=== PATIENT | male | born 1980 | race Caucasian/White ===

== ENCOUNTER 2016-11-09 13:21 | Emergency (ER) | payer OTHER ==
[2016-11-09] MEDS ORDERED: ASPIRIN 81 MG TABLET, CHEWABLE PO ONE (14:53)
--- NOTE | 2016-11-09 15:00 | ER Document Report ---
ED Medical Screen (RME) - General TRAVEL OUTSIDE OF THE [place] IN LAST 30 DAYS: No <SONIDO CARDONA - Last Filed: 11/09/16 14:52> <SHAHIDA HUMPHREY - Last Filed: 11/09/16 21:19> - General Chief Complaint: Arm Pain Stated Complaint: BACK PAIN Notes: Patient is a 36 year old male presenting to the emergency department for left sided chest and back pain since last night. Patient arrived via EMS and states the pain is traveling under his left arm. Patient also has a fever (102.9 F), chills (last night), vomiting, and diarrhea. Patient has a history of TBI and PTSD. Patient has no history of [place], stroke or problems with his gallbladder. (SONIDO CARDONA) - Related Data Allergies/Adverse Reactions: azithromycin [From Zithromax Z-Star] Adverse Reaction (Verified 11/09/16 13:34) Past Medical History - Past Medical History Cardiac Medical History: Reports: Hx Hypertension Pulmonary Medical History: Denies: Hx Tuberculosis Neurological Medical History: Reports: Hx Seizures Renal/ Medical History: Denies: Hx Peritoneal Dialysis Psychiatric Medical History: Reports: Hx Post Traumatic Stress Disorder Traumatic Medical History: Reports: Hx Traumatic Brain Injury - Immunizations Hx Diphtheria, Pertussis, Tetanus Vaccination: - 2007 <SONIDO CARDONA - Last Filed: 11/09/16 14:52> Physical Exam <SONIDO CARDONA - Last Filed: 11/09/16 14:52> <SHAHIDA HUMPHREY - Last Filed: 11/09/16 21:19> - Vital signs Vitals: Temp Pulse Resp BP Pulse Ox 99.4 F 125 H 18 142/83 H 95 11/09/16 13:34 11/09/16 13:34 11/09/16 13:34 11/09/16 13:34 11/09/16 13:34 - Notes Notes: GENERAL: Alert, interacts well. Mild distress. LUNGS: Clear to auscultation bilaterally, no wheezes, rales, or rhonchi. No respiratory distress. HEART: Regular rate and rhythm. No murmurs, gallops, or rubs. ABDOMEN: Epigastric tenderness with palpation. Mild tenderness to the entire abdomen but more tender in the RUQ. Non-distended. Bowel sounds present in all 4 quadrants. (SONIDO CARDONA) Course - Laboratory Result Diagrams: 11/09/16 15:30 11/09/16 15:30 <SHAHIDA HUMPHREY - Last Filed: 11/09/16 21:19> - Vital Signs Vital signs: Temp Pulse Resp BP Pulse Ox 99.0 F 93 18 125/86 H 95 11/09/16 19:31 11/09/16 19:31 11/09/16 19:31 11/09/16 19:31 11/09/16 19:31 - Laboratory Laboratory results interpreted by me: 11/09/16 11/09/16 15:30 15:30 WBC 11.0 H Seg Neuts % (Manual) 87 H Band Neutrophils % 2 L Lymphocytes % (Manual) 6 L Abs Neuts (Manual) 9.8 H Carbon Dioxide 21 L Glucose 160 H ALT 73 H Creatine Kinase 51 L Doctor's Discharge <SONIDO CARDONA - Last Filed: 11/09/16 14:52> <SHAHIDA HUMPHREY - Last Filed: 11/09/16 21:19> - Discharge Clinical Impression: Vomiting and diarrhea, Acute left-sided thoracic back pain, Muscle spasm Condition: Stable Disposition: HOME, SELF-CARE Additional Instructions: VOMITING: Vomiting (or nausea without vomiting) can be caused by many other different problems. It can mean that something's wrong with the stomach, such as ulcers or inflammation or the intestinal tract, such as appendicitis. But it can also be a symptom of a problem that has nothing to do with the stomach or intestines. Vomiting is common with severe headaches, earaches, tonsillitis, and kidney infections, etc. We see it with pneumonia or heart attacks. Drugs can cause nausea and vomiting. Many abdominal problems cause vomiting; for example, gallstones, kidney stones, pancreatitis, and intestinal obstruction ( blocked bowels). In most cases, curing the vomiting depends on fixing the problem that caused it. For temporary relief, we may use an anti-nausea medicine. For home use, we can prescribe suppositories, chewable pills, pills that dissolve in the mouth, or liquid anti-nausea drugs. If the vomiting seems to be caused by a problem in the stomach, acid-suppressing drugs may be prescribed as well. It's important to avoid dehydration. Sip small amounts of clear liquids ( soft drinks, tea, broth, etc) . Try to take fluids frequently even if you are vomiting to prevent dehydration. Take increasing amounts of fluid and when liquids are being consumed successfully, advance to small amounts of bland food (toast, soups, mashed potatoes, etc.) until you are able to resume a regular diet. Avoid aspirin, tobacco, and alcohol. If the vomiting worsens, if the problem that's making you vomit worsens, or if there's evidence of bleeding in the stomach (such as black, tarry stool, or bloody or black vomit), you should return immediately. Also, return if abdominal pain worsens or becomes localized to one area or you develop high fever. Call your doctor if you aren't improved in 24 hours. DIARRHEA, NON-SPECIFIC: Diarrhea means frequent, watery stools. There are many causes. Any problem that keeps the intestinal tract from absorbing water from the stool can lead to diarrhea. A sudden new diarrhea problem is usually caused by a virus, food sensitivity, toxic bacteria, or drugs. In this case, we expect the problem to go away soon. Testing is done only if you seem seriously ill from the diarrhea. If you have chronic diarrhea, or diarrhea that keeps coming back, we need to find out why. Chronic diarrhea can be due to inflammation of the bowels such as Crohn's disease or ulcerative colitis, food sensitivity such as intolerance to lactose or wheat protein, irritable bowel syndrome, and other problems. If your diarrhea is a significant problem but it's not clear why you have it, we' ll refer you to a specialist for further testing. During an episode of diarrhea, drink small amounts (two to six ounces) of clear liquids (soft drinks, sport drinks, herb teas, broth, etc). Take fluids frequently to prevent dehydration. It's usually not a problem to take mild anti- diarrhea medication such as Kaopectate or Pepto-Bismol. As the diarrhea eases, advance to small amounts of bland food (mashed potato, toast) for 24 hours. Call the physician if blood appears in your vomit or stool, if vomiting lasts longer than 24 hours, if the abdominal pain worsens or becomes localized to one area, if you develop high fever, or if you become lightheaded and weak. VIRAL SYNDROME: The physician has diagnosed a likely viral infection. Viruses not only cause "colds," but can cause many different symptoms including generalized aching, fever, headache, cough, diarrhea, nausea, vomiting, and fatigue. The treatment, for the most part, is simply relief of symptoms. This means that antibiotics are usually not given. Rest, fluids, pain medications and, occasionally, medication for the specific symptoms that are most bothersome will be prescribed. Use good handwashing to avoid passing the virus to others. Shared toys should be cleaned with disinfectant. Clean the toilets, sinks, and counter surfaces in bathrooms. Launder clothing in hot water. Contact the physician if you develop any new or unusual symptoms such as severe headache, stiff neck, high fever, chest pain, productive cough, or shortness of breath. You should be rechecked if you don't see marked improvement within seven to 10 days. ANTINAUSEA MEDICATION: You have been given a medication to suppress nausea and vomiting. This type of medication can be given as a shot, pill, or suppository. It will usually last for many hours. Pills and shots usually last six to eight hours. For the typical illness, only one or two doses of the medication may be necessary. Mild lightheadedness may occur. This type of medicine can cause drowsiness. Do not drive or operate dangerous machinery while under its influence. Do not mix with alcohol. See your doctor at once if you have muscle spasms or tightness, or uncontrollable motions (particularly of the neck, mouth, or jaw). Persistent vomiting or severe lightheadedness should also be evaluated by the physician. Ultram Ultram is an excellent drug for pain relief. It is not a narcotic, but it works in a similar way. Ultram can take up to two hours for full effect. Although not addicting, Ultram is best avoided in patients with a history of drug abuse. Ultram should not be used with alcohol, sleeping pills, or narcotics. If you're prone to seizures, Ultram can make you more likely to have a seizure. Ultram can be hazardous when combined with MAO-inhibitor antidepressants (such as Nardil or Parnate). Be sure your doctor is aware of all medicines you are taking. Persons with severe liver or kidney disease should increase the time between doses of Ultram. Discuss this with your doctor if you're uncertain. Side effects of Ultram can include dizziness, nausea, constipation, sleepiness, and itching. (These side effects are also seen with narcotic pain medicines.) Please call your doctor if you have other disturbing effects. FOLLOW-UP CARE: If you have been referred to a physician for follow-up care, call the physician s office for an appointment as you were instructed or within the next two days. If you experience worsening or a significant change in your symptoms, notify the physician immediately or return to the Emergency Department at any time for re-evaluation. Prescriptions: Tramadol HCl [Ultram 50 mg Tablet] 50 mg PO Q4HP PRN #12 tab PRN Reason: Ondansetron [Zofran Odt 4 mg Tablet] 1 - 2 tab PO Q4H PRN #10 tab.rapdis PRN Reason: For Nausea/Vomiting Scribe Documentation - Scribe Written by [employer]:: rDe Brandon 11/09/16 15:05 acting as scribe for :: Peter <SONIDO CARDONA - Last Filed: 11/09/16 14:52>
[2016-11-09] MEDS ORDERED: ONDANSETRON HCL INJ/PF 4 MG/2 ML SDV IV ONE ×2 (15:02→19:31)
[2016-11-09] MEDS ORDERED: HYDROMORPHONE HCL INJ/PF 2 MG/ML AMPULE IV ONE (15:03)
[2016-11-09] MEDS ORDERED: NORMAL SALINE 1000 ML 1,000 ML IV ONE (15:03)
[2016-11-09 15:46] LABS: HEMATOCRIT 46.5 % (37.9-51.0); HEMOGLOBIN 16.1 g/dL (13.5-17.0); HGB HCT DIFFERENCE 1.8; MEAN CORPUSCULAR HEMOGLOBIN 31.7 pg (27.0-33.4); MEAN CORPUSCULAR HGB CONC 34.7 g/dL (32.0-36.0); MEAN CORPUSCULAR VOLUME 92 fl (80-97); RED BLOOD COUNT 5.08 10^6/uL (4.35-5.55); RED CELL DISTRIBUTION WIDTH 13.4 % (11.5-14.0)
[2016-11-09 15:58] LABS: ALANINE AMINOTRANSFERASE 73 U/L (21-72); ALBUMIN 4.7 g/dL (3.5-5.0); ALKALINE PHOSPHATASE 80 U/L (38-126); ANION GAP 16 (5-19); ASPARTATE AMINO TRANSFERASE 29 U/L (17-59); BILIRUBIN,DIRECT 0.3 mg/dL (0.0-0.4); BILIRUBIN,TOTAL 0.9 mg/dL (0.2-1.3); BLOOD UREA NITROGEN 15 mg/dL (7-20); CALCIUM 9.2 mg/dL (8.4-10.2); CARBON DIOXIDE 21 mmol/L (22-30); CHLORIDE 101 mmol/L (98-107); CREATINE KINASE 51 U/L (55-170); CREATININE RESULT 1.17 mg/dL (0.52-1.25); GLUCOSE 160 mg/dL (75-110); POTASSIUM 4.3 mmol/L (3.6-5.0); SODIUM 137.9 mmol/L (137-145); TOTAL PROTEIN 8.2 g/dL (6.3-8.2)
[2016-11-09 16:09] LABS: BAND NEUTROPHILS % (MANUAL) 2 % (3-5); BASOPHILS % (MANUAL) 0 % (0-2); EOSINOPHILS % (MANUAL) 0 % (0-6); LYMPHOCYTES % (MANUAL) 6 % (13-45); TOTAL CELLS COUNTED 100
[2016-11-09 16:10] LABS: RBC MORPHOLOGY COMMENT NORMO-CYTIC/CHROMIC
--- NOTE | 2016-11-09 16:14 | ER Document Report ---
ED General - General Chief Complaint: Arm Pain Stated Complaint: BACK PAIN Time Seen by Provider: 11/09/16 14:52 Notes: Patient says he began feeling ill yesterday with nausea and diarrhea. Patient awakened this morning and between 7 and 8:00 he began having dry heaves. About noon, he actually vomited. At about 10 AM, he was able to eat a piece of toast and keep it down for a couple of hours. He continues to be nauseated and the diarrhea has also continued. Patient started having pain in the left infrascapular region about 9 AM that continued until he arrived here and got some pain medications. He says this pain in the left upper back began while he was laying on the couch watching TV. He is almost pain-free at this time and his nausea is improving. Denies any anterior chest pain. Denies any abdominal pain, but says it hurt when he was examined here in triage when he was poked in the right upper quadrant. TRAVEL OUTSIDE OF THE [place] IN LAST 30 DAYS: No - Related Data Allergies/Adverse Reactions: azithromycin [From Zithromax Z-Star] Adverse Reaction (Verified 11/09/16 13:34) Past Medical History - Social History Smoking Status: Never Smoker Cigarette use (# per day): No - Stopped 1 month ago. Chew tobacco use (# tins/day): No Frequency of alcohol use: None Drug Abuse: None Family History: Reviewed & Not Pertinent - Past Medical History Cardiac Medical History: Reports: Hx Hypertension Neurological Medical History: Reports: Hx Seizures, Other - TBI in the . GI Medical History: Reports: Hx Gastroesophageal Reflux Disease, Other - Colonoscopy 2, polyps found both times Psychiatric Medical History: Reports: Hx Post Traumatic Stress Disorder Traumatic Medical History: Reports: Hx Traumatic Brain Injury Past Surgical History: Reports: None - Immunizations Hx Diphtheria, Pertussis, Tetanus Vaccination: - 2007 Hx Pneumococcal Vaccination: 04/22/01 Review of Systems - Review of Systems Notes: REVIEW OF SYSTEMS: CONSTITUTIONAL : Denies fever. EENT: Denies eye, ear, nose or mouth or throat pain or other symptoms. CARDIOVASCULAR: Denies chest pain. No anterior chest pain at any time. RESPIRATORY: Denies cough, chest congestion, or shortness of breath. GASTROINTESTINAL: Denies abdominal pain but tender in the right upper quadrant when evaluated in triage. See HPI. GENITOURINARY: Denies difficulty or painful urinating, urinary frequency, blood in urine. MUSCULOSKELETAL: Denies back or neck pain. Denies joint pain or swelling. SKIN: Denies rash or skin lesions. NEUROLOGICAL: Denies LOC or altered mental status. Denies headache. Denies sensory loss or motor deficits. ALL OTHER SYSTEMS REVIEWED AND NEGATIVE. Physical Exam - Vital signs Vitals: Temp Pulse Resp BP Pulse Ox 99.4 F 125 H 18 142/83 H 95 11/09/16 13:34 11/09/16 13:34 11/09/16 13:34 11/09/16 13:34 11/09/16 13:34 Interpretation: Normal, Tachycardic - Slightly - Notes Notes: PHYSICAL EXAMINATION: GENERAL: Well-appearing, in no acute distress. Anxious. Has already received a half a milligram of hydromorphone. HEAD: Atraumatic, normocephalic. EYES: Pupils equal round and reactive to light, extraocular movements intact. ENT: oropharynx clear without exudates. Moist mucous membranes. NECK: Normal range of motion, supple. LUNGS: Breath sounds clear and equal bilaterally. HEART: Regular rate and rhythm without murmurs. ABDOMEN: Soft, nontender. No guarding or rebound. BACK: No tenderness throughout entire back except for tender musculature in the left infra scapular region. EXTREMITIES: Normal range of motion without pain. NEUROLOGICAL: Normal speech, normal gait. Normal sensory, motor, and reflex exams. Awake, alert, and oriented x3. Cranial nerves normal. SKIN: Warm, dry, no rashes. Course - Vital Signs Vital signs: Temp Pulse Resp BP Pulse Ox 99.0 F 93 18 125/86 H 95 11/09/16 19:31 11/09/16 19:31 11/09/16 19:31 11/09/16 19:31 11/09/16 19:31 - Laboratory Result Diagrams: 11/09/16 15:30 11/09/16 15:30 Laboratory results interpreted by me: 11/09/16 11/09/16 15:30 15:30 WBC 11.0 H Seg Neuts % (Manual) 87 H Band Neutrophils % 2 L Lymphocytes % (Manual) 6 L Abs Neuts (Manual) 9.8 H Carbon Dioxide 21 L Glucose 160 H ALT 73 H Creatine Kinase 51 L - Diagnostic Test Radiology reviewed: Image reviewed, Reports reviewed Radiology results interpreted by me: 11/09/16 20:52 Ultrasound of the right upper quadrant of the abdomen was normal. 11/09/16 20:52 Chest x-ray was normal. - EKG Interpretation by Me EKG shows normal: Sinus rhythm Rate: Normal Rhythm: NSR Additional EKG results interpreted by me: 11/09/16 20:52 EKG was normal. Discharge - Discharge Clinical Impression: Vomiting and diarrhea, Acute left-sided thoracic back pain, Muscle spasm Condition: Stable Disposition: HOME, SELF-CARE Additional Instructions: VOMITING: Vomiting (or nausea without vomiting) can be caused by many other different problems. It can mean that something's wrong with the stomach, such as ulcers or inflammation or the intestinal tract, such as appendicitis. But it can also be a symptom of a problem that has nothing to do with the stomach or intestines. Vomiting is common with severe headaches, earaches, tonsillitis, and kidney infections, etc. We see it with pneumonia or heart attacks. Drugs can cause nausea and vomiting. Many abdominal problems cause vomiting; for example, gallstones, kidney stones, pancreatitis, and intestinal obstruction ( blocked bowels). In most cases, curing the vomiting depends on fixing the problem that caused it. For temporary relief, we may use an anti-nausea medicine. For home use, we can prescribe suppositories, chewable pills, pills that dissolve in the mouth, or liquid anti-nausea drugs. If the vomiting seems to be caused by a problem in the stomach, acid-suppressing drugs may be prescribed as well. It's important to avoid dehydration. Sip small amounts of clear liquids ( soft drinks, tea, broth, etc) . Try to take fluids frequently even if you are vomiting to prevent dehydration. Take increasing amounts of fluid and when liquids are being consumed successfully, advance to small amounts of bland food (toast, soups, mashed potatoes, etc.) until you are able to resume a regular diet. Avoid aspirin, tobacco, and alcohol. If the vomiting worsens, if the problem that's making you vomit worsens, or if there's evidence of bleeding in the stomach (such as black, tarry stool, or bloody or black vomit), you should return immediately. Also, return if abdominal pain worsens or becomes localized to one area or you develop high fever. Call your doctor if you aren't improved in 24 hours. DIARRHEA, NON-SPECIFIC: Diarrhea means frequent, watery stools. There are many causes. Any problem that keeps the intestinal tract from absorbing water from the stool can lead to diarrhea. A sudden new diarrhea problem is usually caused by a virus, food sensitivity, toxic bacteria, or drugs. In this case, we expect the problem to go away soon. Testing is done only if you seem seriously ill from the diarrhea. If you have chronic diarrhea, or diarrhea that keeps coming back, we need to find out why. Chronic diarrhea can be due to inflammation of the bowels such as Crohn's disease or ulcerative colitis, food sensitivity such as intolerance to lactose or wheat protein, irritable bowel syndrome, and other problems. If your diarrhea is a significant problem but it's not clear why you have it, we' ll refer you to a specialist for further testing. During an episode of diarrhea, drink small amounts (two to six ounces) of clear liquids (soft drinks, sport drinks, herb teas, broth, etc). Take fluids frequently to prevent dehydration. It's usually not a problem to take mild anti- diarrhea medication such as Kaopectate or Pepto-Bismol. As the diarrhea eases, advance to small amounts of bland food (mashed potato, toast) for 24 hours. Call the physician if blood appears in your vomit or stool, if vomiting lasts longer than 24 hours, if the abdominal pain worsens or becomes localized to one area, if you develop high fever, or if you become lightheaded and weak. VIRAL SYNDROME: The physician has diagnosed a likely viral infection. Viruses not only cause "colds," but can cause many different symptoms including generalized aching, fever, headache, cough, diarrhea, nausea, vomiting, and fatigue. The treatment, for the most part, is simply relief of symptoms. This means that antibiotics are usually not given. Rest, fluids, pain medications and, occasionally, medication for the specific symptoms that are most bothersome will be prescribed. Use good handwashing to avoid passing the virus to others. Shared toys should be cleaned with disinfectant. Clean the toilets, sinks, and counter surfaces in bathrooms. Launder clothing in hot water. Contact the physician if you develop any new or unusual symptoms such as severe headache, stiff neck, high fever, chest pain, productive cough, or shortness of breath. You should be rechecked if you don't see marked improvement within seven to 10 days. ANTINAUSEA MEDICATION: You have been given a medication to suppress nausea and vomiting. This type of medication can be given as a shot, pill, or suppository. It will usually last for many hours. Pills and shots usually last six to eight hours. For the typical illness, only one or two doses of the medication may be necessary. Mild lightheadedness may occur. This type of medicine can cause drowsiness. Do not drive or operate dangerous machinery while under its influence. Do not mix with alcohol. See your doctor at once if you have muscle spasms or tightness, or uncontrollable motions (particularly of the neck, mouth, or jaw). Persistent vomiting or severe lightheadedness should also be evaluated by the physician. Ultram Ultram is an excellent drug for pain relief. It is not a narcotic, but it works in a similar way. Ultram can take up to two hours for full effect. Although not addicting, Ultram is best avoided in patients with a history of drug abuse. Ultram should not be used with alcohol, sleeping pills, or narcotics. If you're prone to seizures, Ultram can make you more likely to have a seizure. Ultram can be hazardous when combined with MAO-inhibitor antidepressants (such as Nardil or Parnate). Be sure your doctor is aware of all medicines you are taking. Persons with severe liver or kidney disease should increase the time between doses of Ultram. Discuss this with your doctor if you're uncertain. Side effects of Ultram can include dizziness, nausea, constipation, sleepiness, and itching. (These side effects are also seen with narcotic pain medicines.) Please call your doctor if you have other disturbing effects. FOLLOW-UP CARE: If you have been referred to a physician for follow-up care, call the physician s office for an appointment as you were instructed or within the next two days. If you experience worsening or a significant change in your symptoms, notify the physician immediately or return to the Emergency Department at any time for re-evaluation. Prescriptions: Tramadol HCl [Ultram 50 mg Tablet] 50 mg PO Q4HP PRN #12 tab PRN Reason: Ondansetron [Zofran Odt 4 mg Tablet] 1 - 2 tab PO Q4H PRN #10 tab.rapdis PRN Reason: For Nausea/Vomiting
[2016-11-09 16:16] LABS: CREATINE KINASE MB < 0.22 ng/mL (<4.55); TROPONIN I < 0.012 ng/mL
--- NOTE | 2016-11-09 16:18 | RADIOLOGY REPORT (SQ) ---
EXAM DESCRIPTION: CHEST SINGLE VIEW COMPLETED DATE/TIME: 11/09/2016 4:04 pm REASON FOR STUDY: CP COMPARISON: July 2015 EXAM PARAMETERS: NUMBER OF VIEWS: One view. TECHNIQUE: Single frontal radiographic view of the chest acquired. RADIATION DOSE: NA LIMITATIONS: None. FINDINGS: LUNGS AND PLEURA: No opacities, masses or pneumothorax. No pleural effusion. MEDIASTINUM AND HILAR STRUCTURES: No masses. Contour normal. HEART AND VASCULAR STRUCTURES: Heart normal in size. Normal vasculature. BONES: No acute findings. HARDWARE: None in the chest. OTHER: No other significant finding. IMPRESSION: NO ACUTE RADIOGRAPHIC FINDING IN THE CHEST. TECHNICAL DOCUMENTATION: JOB ID: [id number]
--- NOTE | 2016-11-09 17:49 | RADIOLOGY REPORT (SQ) ---
EXAM DESCRIPTION: U/S ABDOMEN LIMITED W/O DOP COMPLETED DATE/TIME: 11/09/2016 5:27 pm REASON FOR STUDY: RUQ and back pain, nausea, vom, fever COMPARISON: None. TECHNIQUE: Dynamic and static grayscale images acquired of the right upper quadrant and recorded on PACS. Additional selected color Doppler and spectral images recorded. LIMITATIONS: Study limited due to acoustical interference from fat or from air in the bowel. FINDINGS: PANCREAS: Parts or all of the pancreas poorly seen secondary to acoustical interference fr om fat or from air in the bowel. LIVER: Echotexture is coarse with increased echogenicity consistent with fatty infiltration. No mass es. LIVER VASCULATURE: Normal directional flow of the main portal vein and hepatic veins. GALLBLADDER: No stones. Normal wall thickness. No pericholecystic fluid. ULTRASOUND-DETECTED MARTIN'S SIGN: Negative. INTRAHEPATIC DUCTS AND COMMON DUCT: CBD and intrahepatic ducts normal caliber. No filling defects. INFERIOR VENA CAVA: Normal flow. AORTA: No aneurysm. RIGHT KIDNEY: Normal size. Normal echogenicity. No solid or suspicious masses. No hydronephrosis. No calcifications. PERITONEAL CAVITY AND RIGHT PLEURAL SPACE: No ascites or effusions. OTHER: No other significant finding. IMPRESSION: FATTY LIVER. PANCREAS PARTIALLY OR COMPLETELY OBSCURED. OTHERWISE NORMAL RIGHT UPPER KELVIN DRANT ULTRASOUND. TECHNICAL DOCUMENTATION: JOB ID: [id number] [email or web address]- All Rights Reserved
[2016-11-09 19:49] VITALS: BP 125/86
--- NOTE | 2016-11-11 13:37 | EKG REPORT ---
SEVERITY:- BORDERLINE ECG - SINUS TACHYCARDIA BORDERLINE T ABNORMALITIES, DIFFUSE LEADS : Confirmed by: Casie Masters MD 11-Nov-2016 13:36:23
== END 2016-11-09 19:53 | disposition home or self-care (01) ==
LOC: ER 13:21
DX: R19.7 Diarrhea, unspecified (principal); R11.2 Nausea with vomiting, unspecified; M79.603 Pain in arm, unspecified; M54.6 Pain in thoracic spine; M62.838 Other muscle spasm; Z88.3 Allergy status to other anti-infective agents; I10 Essential (primary) hypertension; F43.10 Post-traumatic stress disorder, unspecified; K21.9 Gastro-esophageal reflux disease without esophagitis; Z87.820 Personal history of traumatic brain injury
CPT/HCPCS: 93005; 96376; 99284; 96374; 96375; 36415; 82553; 82550; 83690; 85025; 80053; 84484; 71010; 76705; 93010; J1170; J2405

== ENCOUNTER 2018-09-27 08:46 | Emergency (ER) | payer OTHER ==
[2018-09-27] MEDS ORDERED: ASPIRIN 81 MG TABLET, CHEWABLE PO ONE (09:51)
[2018-09-27] MEDS ORDERED: ONDANSETRON HCL INJ/PF 4 MG/2 ML SDV IV ONE (09:52)
--- NOTE | 2018-09-27 09:54 | ER Document Report ---
ED Medical Screen (RME) - General Chief Complaint: Chest Pain Stated Complaint: SHORTNESS OF BREATH Time Seen by Provider: 09/27/18 09:45 Notes: Patient is a 38-year-old male presents to the emergency department with multiple complaints. States he has generalized left lower abdominal pain and also some dysuria. Patient states he has no history of kidney stones. Patient states he also has chest pain. States is dull in nature he is also very nauseated. Patient states chest pain is a center of his chest dull nonradiating. Started this morning. Patient states he also feels as though sometimes he cannot catch his breath. Patient is denying fevers. Is admitting to vomiting and diarrhea over the last couple of days. GENERAL: Alert, interacts well. No acute distress. LUNGS: Clear to auscultation bilaterally, no wheezes, rales, or rhonchi. No respiratory distress. I have greeted and performed a rapid initial assessment of this patient. A comprehensive ED assessment and evaluation of the patient, analysis of test results and completion of the medical decision making process will be conducted by additional ED providers. This medical record was dictated with voice recognizing software. There may be grammatical, syntax errors that are unintended. TRAVEL OUTSIDE OF THE [place] IN LAST 30 DAYS: No - Related Data Allergies/Adverse Reactions: azithromycin [From Zithromax Z-Star] Adverse Reaction (Verified 09/27/18 08:48) Past Medical History - Past Medical History Cardiac Medical History: Reports: Hx Hypertension Pulmonary Medical History: Denies: Hx Tuberculosis Neurological Medical History: Reports: Hx Seizures Renal/ Medical History: Denies: Hx Peritoneal Dialysis GI Medical History: Reports: Hx Gastroesophageal Reflux Disease Psychiatric Medical History: Reports: Hx Post Traumatic Stress Disorder Traumatic Medical History: Reports: Hx Traumatic Brain Injury - Immunizations Hx Diphtheria, Pertussis, Tetanus Vaccination: - 2007 Physical Exam - Vital signs Vitals: Temp Pulse Resp BP Pulse Ox 98.1 F 89 19 149/104 H 96 09/27/18 08:53 09/27/18 08:53 09/27/18 08:53 09/27/18 08:53 09/27/18 08:53 Course - Vital Signs Vital signs: Temp Pulse Resp BP Pulse Ox 98.1 F 89 19 149/104 H 96 09/27/18 08:53 09/27/18 08:53 09/27/18 08:53 09/27/18 08:53 09/27/18 08:53
[2018-09-27] MEDS ORDERED: ONDANSETRON HCL INJ/PF 4 MG/2 ML SDV ONE (10:19)
[2018-09-27] MEDS ORDERED: ASPIRIN 81 MG TABLET, CHEWABLE ONE (10:19)
[2018-09-27 10:44] LABS: ABSOLUTE BASOPHILS # (AUTO) 0.1 10^3/uL (0.0-0.2); ABSOLUTE EOSINOPHILS # (AUTO) 0.2 10^3/uL (0.0-0.6); ABSOLUTE LYMPHOCYTES (AUTO) 1.6 10^3/uL (0.5-4.7); ABSOLUTE MONOCYTES (AUTO) 0.5 10^3/uL (0.1-1.4); ABSOLUTE NEUT (AUTO) 6.8 10^3/uL (1.7-8.2); BASOPHILS % (AUTO) 0.6 % (0-2); EOSINOPHILS % (AUTO) 1.9 % (0-6); HEMATOCRIT 44.6 % (37.9-51.0); HEMOGLOBIN 15.7 g/dL (13.5-17.0); LYMPHOCYTES % (AUTO) 17.7 % (13-45); MEAN CORPUSCULAR HEMOGLOBIN 31.1 pg (27.0-33.4); MEAN CORPUSCULAR HGB CONC 35.2 g/dL (32.0-36.0); MEAN CORPUSCULAR VOLUME 89 fl (80-97); PLATELET COUNT 246 10^3/uL (150-450); RED BLOOD COUNT 5.04 10^6/uL (4.35-5.55); SEGMENTED NEUTROPHILS % (AUTO) 73.8 % (42-78); TOTAL CELLS COUNTED % (AUTO) 100 %; WHITE BLOOD COUNT 9.2 10^3/uL (4.0-10.5)
[2018-09-27 10:50] LABS: ALANINE AMINOTRANSFERASE 40 U/L (21-72); ALBUMIN 4.7 g/dL (3.5-5.0); ALKALINE PHOSPHATASE 79 U/L (38-126); ANION GAP 12 (5-19); ASPARTATE AMINO TRANSFERASE 19 U/L (17-59); BILIRUBIN,DIRECT 0.3 mg/dL (0.0-0.4); BILIRUBIN,TOTAL 0.7 mg/dL (0.2-1.3); BLOOD UREA NITROGEN 9 mg/dL (7-20); CARBON DIOXIDE 29 mmol/L (22-30); CHLORIDE 99 mmol/L (98-107); CREATINE KINASE 43 U/L (55-170); GLUCOSE 161 mg/dL (75-110); LIPASE 79.8 U/L (23-300); POTASSIUM 4.6 mmol/L (3.6-5.0); SODIUM 139.6 mmol/L (137-145); TOTAL PROTEIN 7.8 g/dL (6.3-8.2)
--- NOTE | 2018-09-27 10:54 | RADIOLOGY REPORT (SQ) ---
EXAM DESCRIPTION: CHEST SINGLE VIEW COMPLETED DATE/TIME: 09/27/2018 10:43 am REASON FOR STUDY: CP COMPARISON: None. NUMBER OF VIEWS: One view. TECHNIQUE: Single frontal radiographic view of the chest acquired. LIMITATIONS: None. FINDINGS: LUNGS AND PLEURA: No opacities, masses or pneumothorax. No pleural effusion. MEDIASTINUM AND HILAR STRUCTURES: No masses. Contour normal. HEART AND VASCULAR STRUCTURES: Heart normal in size. Normal vasculature. BONES: No acute findings. HARDWARE: None in the chest. OTHER: No other significant finding. IMPRESSION: NO SIGNIFICANT RADIOGRAPHIC FINDING IN THE CHEST. TECHNICAL DOCUMENTATION: JOB ID: [id number] [employer]- All Rights Reserved Reading location - IP/workstation name: [email or web address]
[2018-09-27 11:07] LABS: CREATINE KINASE MB < 0.22 ng/mL (<4.55); TROPONIN I < 0.012 ng/mL
--- NOTE | 2018-09-27 11:49 | EKG REPORT ---
SEVERITY:- NORMAL ECG - SINUS RHYTHM : Confirmed by: Richi Michele MD 27-Sep-2018 11:49:15
--- NOTE | 2018-09-27 11:50 | ER Document Report ---
ED General - General Chief Complaint: Chest Pain Stated Complaint: SHORTNESS OF BREATH Time Seen by Provider: 09/27/18 09:45 Primary Care Provider: FUNMILAYO RODRIGUEZ [Primary Care Provider] - Follow up as needed Notes: Patient says he awakened at 3 AM this morning with vomiting and back pain in the lower lumbar region bilaterally. That pain continues now, but is no longer vomiting. He does have some dry heaves, most recently here in the emergency department. Has been given 8 mg of Zofran IV in triage. Patient says he also has some anterior chest pains of varying degree and location. Also having some pain in the lower abdomen. Patient says he had diarrhea for the past couple of days is also had a cough for a couple of days. Has noted some burning and stinging with urination, but no blood present. No history of kidney stones. Denies any fever. Has never had any abdominal surgeries. Is on medications for GERD, hypertension, seizures, restless leg syndrome, and just started metformin for NIDDM on . TRAVEL OUTSIDE OF THE [place] IN LAST 30 DAYS: No - Related Data Allergies/Adverse Reactions: azithromycin [From Zithromax Z-Star] Adverse Reaction (Verified 09/27/18 08:48) Past Medical History - Social History Smoking Status: Current Every Day Smoker Frequency of alcohol use: Social Drug Abuse: None Family History: Reviewed & Not Pertinent Patient has suicidal ideation: No Patient has homicidal ideation: No - Past Medical History Cardiac Medical History: Reports: Hx Hypertension Neurological Medical History: Reports: Hx Seizures Endocrine Medical History: Reports: Hx Diabetes Mellitus Type 2 GI Medical History: Reports: Hx Gastroesophageal Reflux Disease Psychiatric Medical History: Reports: Hx Post Traumatic Stress Disorder Traumatic Medical History: Reports: Hx Traumatic Brain Injury - Immunizations Hx Diphtheria, Pertussis, Tetanus Vaccination: - 2007 Hx Pneumococcal Vaccination: 04/22/01 Review of Systems - Review of Systems Notes: REVIEW OF SYSTEMS: CONSTITUTIONAL : Denies fever. EENT: Denies eye, ear, nose or mouth or throat pain or other symptoms. CARDIOVASCULAR: See HPI. RESPIRATORY: Denies cough, chest congestion, or shortness of breath. GASTROINTESTINAL: See HPI. GENITOURINARY: Denies difficulty or painful urinating, urinary frequency, blood in urine. MUSCULOSKELETAL: Denies back or neck pain. Denies joint pain or swelling. SKIN: Denies rash or skin lesions. NEUROLOGICAL: Denies LOC or altered mental status. Denies headache. Denies sensory loss or motor deficits. ALL OTHER SYSTEMS REVIEWED AND NEGATIVE. Physical Exam - Vital signs Vitals: Temp Pulse Resp BP Pulse Ox 98.1 F 89 19 149/104 H 96 09/27/18 08:53 09/27/18 08:53 09/27/18 08:53 09/27/18 08:53 09/27/18 08:53 Interpretation: Normal Notes: PHYSICAL EXAMINATION: GENERAL: Well-appearing, in no acute distress. Patient does not appear to be in pain or any discomfort throughout his stay even though he says he still having pain in various areas of his body. HEAD: Atraumatic, normocephalic. EYES: Pupils equal round and reactive to light, extraocular movements intact. ENT: oropharynx clear without exudates. Moist mucous membranes. NECK: Normal range of motion, supple. LUNGS: Breath sounds clear and equal bilaterally. HEART: Regular rate and rhythm without murmurs. ABDOMEN: Soft, nontender. No guarding or rebound. No masses. BACK: No tenderness throughout entire back. EXTREMITIES: Normal range of motion without pain. NEUROLOGICAL: Normal speech, normal gait. Normal sensory, motor, and reflex exams. Awake, alert, and oriented x3. Cranial nerves normal. PSYCH: Normal mood, normal affect. Appears depressed to me. SKIN: Warm, dry, no rashes. Course - Vital Signs Vital signs: Temp Pulse Resp BP Pulse Ox 98.1 F 89 19 116/79 95 09/27/18 08:53 09/27/18 08:53 09/27/18 14:01 09/27/18 14:01 09/27/18 14:01 - Laboratory Result Diagrams: 09/27/18 10:02 09/27/18 10:02 Laboratory results interpreted by me: 09/27/18 09/27/18 10:02 11:25 Glucose 161 H Creatine Kinase 43 L Ur Leukocyte Esterase SMALL H - Diagnostic Test Radiology results interpreted by me: 09/27/18 18:57 Chest x-ray is normal. - EKG Interpretation by Nm EKG shows normal: Sinus rhythm Rate: Normal Rhythm: NSR Additional EKG results interpreted by in: 09/27/18 18:57 EKG shows no acute changes, no STEMI. Discharge - Discharge Clinical Impression: Back pain, Abdominal pain, Vomiting, Chest pain, Medication side effect Condition: Stable Disposition: HOME, SELF-CARE Additional Instructions: ABDOMINAL PAIN: There are many causes of abdominal pain. Pain can mean a serious problem requiring surgery (such as appendicitis). It can also be an innocent problem that goes away on its own (such as a viral infection). Often, time must pass to determine the cause of pain. The physician does not feel that hospitalization is necessary, at present. Things may change within the next 24 hours. Call the doctor or come back for re- examination if any problems occur, such as: (1) Pain that becomes more severe, steady, or becomes concentrated in one specific area. Also, pain that is more severe with movement or coughing. (2) Vomiting that persists or becomes more frequent. (3) Blood in the vomitus, urine, or bowel movements. Blood in the stool may have a tarry or black appearance. (4) Shaking chills or fever greater than 100 degrees F. (5) The abdomen becomes more distended or swollen. (6) Bowel movements cease. (7) Failure to improve as expected. VOMITING: Vomiting (or nausea without vomiting) can be caused by many other different problems. It can mean that something's wrong with the stomach, such as ulcers or inflammation or the intestinal tract, such as appendicitis. But it can also be a symptom of a problem that has nothing to do with the stomach or intestines. Vomiting is common with severe headaches, earaches, tonsillitis, and kidney infections, etc. We see it with pneumonia or heart attacks. Drugs can cause nausea and vomiting. Many abdominal problems cause vomiting; for example, gallstones, kidney stones, pancreatitis, and intestinal obstruction (blocked bowels). In most cases, curing the vomiting depends on fixing the problem that caused it. For temporary relief, we may use an anti-nausea medicine. For home use, we can prescribe suppositories, chewable pills, pills that dissolve in the mouth, or liquid anti-nausea drugs. If the vomiting seems to be caused by a problem in the stomach, acid-suppressing drugs may be prescribed as well. It's important to avoid dehydration. Sip small amounts of clear liquids (soft drinks, tea, broth, etc) . Try to take fluids frequently even if you are vomiting to prevent dehydration. Take increasing amounts of fluid and when liquids are being consumed successfully, advance to small amounts of bland food (toast, soups, mashed potatoes, etc.) until you are able to resume a regular diet. Avoid aspirin, tobacco, and alcohol. If the vomiting worsens, if the problem that's making you vomit worsens, or if there's evidence of bleeding in the stomach (such as black, tarry stool, or bloody or black vomit), you should return immediately. Also, return if abdominal pain worsens or becomes localized to one area or you develop high fever. Call your doctor if you aren't improved in 24 hours. DIARRHEA, NON-SPECIFIC: Diarrhea means frequent, watery stools. There are many causes. Any problem that keeps the intestinal tract from absorbing water from the stool can lead to diarrhea. A sudden new diarrhea problem is usually caused by a virus, food sensitivity, toxic bacteria, or drugs. In this case, we expect the problem to go away soon. Testing is done only if you seem seriously ill from the diarrhea. If you have chronic diarrhea, or diarrhea that keeps coming back, we need to find out why. Chronic diarrhea can be due to inflammation of the bowels such as Crohn's disease or ulcerative colitis, food sensitivity such as intolerance to lactose or wheat protein, irritable bowel syndrome, and other problems. If your diarrhea is a significant problem but it's not clear why you have it, we'll refer you to a specialist for further testing. During an episode of diarrhea, drink small amounts (two to six ounces) of clear liquids (soft drinks, sport drinks, herb teas, broth, etc). Take fluids frequently to prevent dehydration. It's usually not a problem to take mild anti- diarrhea medication such as Kaopectate or Pepto-Bismol. As the diarrhea eases, advance to small amounts of bland food (mashed potato, toast) for 24 hours. Call the physician if blood appears in your vomit or stool, if vomiting lasts longer than 24 hours, if the abdominal pain worsens or becomes localized to one area, if you develop high fever, or if you become lightheaded and weak. CHEST PAIN OF UNCLEAR CAUSE: The exact cause of your chest pain isn't clear. Fortunately, there is no evidence of a dangerous medical condition. Further testing may be required to find the source of the pain. Most often, we find that this pain is coming from the chest wall -- the muscles or rib joints in the chest. But chest pain can come from the lung and lung lining, the esophagus, the heart valves or heart lining, and even the stomach or gallbladder. Rest. Eat lightly until the pain is gone. We may prescribe medicine for pain and inflammation. You should call the physician immediately if the pain radiates to the shoulder, jaw or arms; if you start to run a fever or develop a cough; or if you develop shortness of breath, or other new or alarming symptoms. NORMAL EXAM AND WORKUP: At this time, your examination and workup show no significant abnormality. You have a few white cells in your urine, but I do not infection. No significant abnormal physical findings are noted. All laboratory, EKG, and imaging (x-ray, CT scans, ultrasound) studies that were ordered show no significant abnormality. Although your examination and all studies that were ordered showed no significant abnormal finding, there are no examinations and no studies that are 100% accurate. There is always the possibility that some abnormality could exist and not be detected with physical examination or within the limits and capabilities of laboratory and other studies. You should return or follow up as you were instructed on your visit today for further evaluation if your symptoms do not resolve. TORADOL INJECTION: You have been given an injection of ketorolac tromethamine (Toradol). This is an excellent, safe drug for pain control. It also has potent antiinflammatory action. You should have significant pain relief within about one hour. Toradol is not addicting and is non-sedating. It does not interfere with driving or work. Call or return if you develop itching, hives, shortness of breath, or rash. ANTINAUSEA MEDICATION: You have been given a medication to suppress nausea and vomiting. This type of medication can be given as a shot, pill, or suppository. It will usually last for many hours. Pills and shots usually last six to eight hours, suppositories last about 12 hours. For the typical illness, only one or two doses of the medication may be necessary. Mild lightheadedness may occur. This type of medicine can cause drowsiness. Do not drive or operate dangerous machinery while under its influence. Do not mix with alcohol. See your doctor at once if you have muscle spasms or tightness, or uncontrollable motions (particularly of the neck, mouth, or jaw). Persistent vomiting or severe lightheadedness should also be evaluated by the physician. Ultram Ultram is an excellent drug for pain relief. It is not a narcotic, but it works in a similar way. Ultram can take up to two hours for full effect. Although not addicting, Ultram is best avoided in patients with a history of drug abuse. Ultram should not be used with alcohol, sleeping pills, or narcotics. If you're prone to seizures, Ultram can make you more likely to have a seizure. Ultram can be hazardous when combined with MAO-inhibitor antidepressants (such as Nardil or Parnate). Be sure your doctor is aware of all medicines you are taking. Persons with severe liver or kidney disease should increase the time between doses of Ultram. Discuss this with your doctor if you're uncertain. Side effects of Ultram can include dizziness, nausea, constipation, sl eepiness, and itching. (These side effects are also seen with narcotic pain medicines.) Please call your doctor if you have other disturbing effects. FOLLOW-UP CARE: If you have been referred to a physician for follow-up care, call the physicians office for an appointment as you were instructed or within the next two days. If you experience worsening or a significant change in your symptoms, notify the physician immediately or return to the Emergency Department at any time for re-evaluation. Stop taking your metformin for 3 days and resume taking it on Saturday. Drink plenty fluids. Take the prescribed medications as needed. Return at any time if you have new or worsening symptoms. Prescriptions: Promethazine HCl [Phenergan 25 mg Tablet] 1 - 2 tab PO Q6HP PRN #15 tablet PRN Reason: Tramadol HCl [Ultram] 50 mg PO Q6HP PRN #10 tablet PRN Reason: Referrals: [facility] [[facility]] - Follow up as needed
[2018-09-27] MEDS ORDERED: KETOROLAC TROMETHAMINE INJ/PF 30 MG/1 ML SDV IV ONE (11:54)
[2018-09-27 12:01] LABS: APPEARANCE,URINE SLIGHTLY-CLOUDY; BILIRUBIN,URINE NEGATIVE (NEGATIVE); COLOR,URINE YELLOW; GLUCOSE, URINE NEGATIVE (NEGATIVE); KETONES,URINE NEGATIVE (NEGATIVE); LEUKOCYTE ESTERASE,URINE SMALL (NEGATIVE); NITRITE,URINE NEGATIVE (NEGATIVE); PROTEIN,URINE NEGATIVE (NEGATIVE); URINE SPECIFIC GRAVITY 1.015; UROBILINOGEN,URINE NEGATIVE mg/dL (<2.0)
[2018-09-27 14:18] VITALS: BP 116/79
== END 2018-09-27 14:24 | disposition home or self-care (01) ==
LOC: ER 08:46
DX: R07.9 Chest pain, unspecified (principal); R06.02 Shortness of breath; R11.10 Vomiting, unspecified; R10.9 Unspecified abdominal pain; M54.9 Dorsalgia, unspecified; T50.905A Adverse effect of unspecified drugs, medicaments and biological substances, initial encounter; X58.XXXA Exposure to other specified factors, initial encounter; K21.9 Gastro-esophageal reflux disease without esophagitis; I10 Essential (primary) hypertension; E11.9 Type 2 diabetes mellitus without complications; Z79.84 Long term (current) use of oral hypoglycemic drugs
CPT/HCPCS: 93005; 99284; 96374; 96375; 36415; 87086; 82553; 82550; 83690; 85025; 80053; 81001; 84484; 71045; 93010; J1885; J2405

== ENCOUNTER 2018-10-01 03:02 | Emergency (ER) | payer OTHER ==
[2018-10-01] MEDS ORDERED: NORMAL SALINE 1000 ML 1,000 ML IV ONE (03:25)
[2018-10-01] MEDS ORDERED: HYDROMORPHONE HCL INJ/PF 2 MG/ML AMPULE IV ONE (03:25)
[2018-10-01] MEDS ORDERED: ONDANSETRON HCL INJ/PF 4 MG/2 ML SDV IV ONE (03:25)
--- NOTE | 2018-10-01 03:41 | ER Document Report ---
ED General - General Chief Complaint: Abdominal Pain Stated Complaint: BACK AND STOMACH PAIN Time Seen by Provider: 10/01/18 03:18 Primary Care Provider: FUNMILAYO RODRIGUEZ [Primary Care Provider] - Follow up as needed Notes: Patient is a 38-year-old male presents with complaint of back pain and abdominal pain. He said the pain goes all across his entire abdomen. Some pain going to the mid of his back. He has had vomiting. Started tonight. Next had similar symptoms approximately 3 days ago. He was seen in the ER for. At that time he had just recently started metformin. He was told to hold metformin. Since holding metformin his symptoms went away but then he was told to restart it today. He restarted the medicine today and then start having the symptoms again. No fevers. No blood in his emesis or stool. No history of abdominal surgeries. No other complaints at this time. TRAVEL OUTSIDE OF THE [place] IN LAST 30 DAYS: No - Related Data Allergies/Adverse Reactions: azithromycin [From Zithromax Z-Star] Adverse Reaction (Verified 10/01/18 03:03) Past Medical History - Social History Smoking Status: Never Smoker Frequency of alcohol use: None Drug Abuse: None Family History: Reviewed & Not Pertinent - Past Medical History Cardiac Medical History: Reports: Hx Hypertension Pulmonary Medical History: Denies: Hx Tuberculosis Neurological Medical History: Reports: Hx Seizures Endocrine Medical History: Reports: Hx Diabetes Mellitus Type 2 Renal/ Medical History: Denies: Hx Peritoneal Dialysis GI Medical History: Reports: Hx Gastroesophageal Reflux Disease Psychiatric Medical History: Reports: Hx Post Traumatic Stress Disorder Traumatic Medical History: Reports: Hx Traumatic Brain Injury - Immunizations Hx Diphtheria, Pertussis, Tetanus Vaccination: - 2007 Hx Pneumococcal Vaccination: 04/22/01 Review of Systems - Review of Systems Notes: My Normal Review Basic REVIEW OF SYSTEMS: CONSTITUTIONAL : Denies fever, chills, or sweats. Denies recent illness. EENT: Denies eye, ear, throat, or mouth pain or symptoms. Denies nasal or sinus congestion. CARDIOVASCULAR: Denies chest pain. RESPIRATORY: Denies cough, cold, or chest congestion. Denies shortness of breath, difficulty breathing, or wheezing. GASTROINTESTINAL: abdominal Pain and vomiting GENITOURINARY: Denies difficulty urinating, painful urination, burning, frequen cy, or blood in urine. MUSCULOSKELETAL: Back pain SKIN: Denies rash or skin lesions. NEUROLOGICAL: Denies altered mental status or loss of consciousness. Denies headache. Denies weakness or paralysis or loss of use of either side. Denies problems with gait or speech. Denies sensory or motor loss. ALL OTHER SYSTEMS REVIEWED AND NEGATIVE. Physical Exam - Vital signs Vitals: Temp Pulse Resp BP Pulse Ox 98.1 F 68 24 H 165/106 H 98 10/01/18 03:04 10/01/18 03:04 10/01/18 03:04 10/01/18 03:04 10/01/18 03:04 - Notes Notes: General Appearance: Well nourished, alert, cooperative, no acute distress, moderate obvious discomfort. Flu vomiting Vitals: reviewed, See vital signs table. Head: no swelling or tenderness to the head Eyes: PERRL, EOMI, Conjuctiva clear Mouth: No decreasd moisture Lungs: No wheezing, No rales, No rhonci, No accessory muscle use, good air exchange bilaterally. Heart: Normal rate, Regular rythm, No murmur, no rub Abdomen: Normal BS, soft, No rigidity, mild diffuse abdominal tenderness to palpation, No guarding, no rebound, no abdominal masses, no organomegaly Back: No redness or swelling on back. Extremities: strength 5/5 in all extremities, good pulses in all extremities, no swelling or tenderness in the extremities, no edema. Skin: warm, dry, appropriate color, no rash Neuro: speech clear, oriented x 3, normal affect, responds appropriately to questions. Course - Re-evaluation Re-evalutation: 10/01/18 05:14 Patient is feeling much improved. He looks well. No longer has any pain or nausea or vomiting. Informed him that he may still have recurrent pain and nausea throughout the day but all pain and nausea should be resolved within 24 hours. Pain and nausea if not resolved within 24 hours he must return to ER for evaluation. Informed him to stop taking the metformin. I encouraged him return to ER immediately if he has intractable pain, intractable vomiting, fevers, or if he feels unwell. He is supposed to see his doctor on . I informed him to talk to his doctor about alternative for treatment of his diabetes. Patient agrees with plan will be discharged home. Discharge instructions also discussed with the who is agreeable to plan. Dictation of this chart was performed using voice recognition software; therefore, there may be some unintended grammatical errors. - Vital Signs Vital signs: Temp Pulse Resp BP Pulse Ox 98.1 F 68 24 H 165/106 H 98 10/01/18 03:04 10/01/18 03:04 10/01/18 03:04 10/01/18 03:04 10/01/18 03:04 - Laboratory Result Diagrams: 10/01/18 03:43 10/01/18 03:43 Laboratory results interpreted by me: 10/01/18 10/01/18 03:43 03:56 Glucose 147 H Urine Protein 100 H Urine Ketones TRACE H Urine Urobilinogen 2.0 H Ur Leukocyte Esterase TRACE H Discharge - Discharge Clinical Impression: Abdominal pain Qualifiers: Abdominal location: unspecified location Qualified Code(s): R10.9 - Unspecified abdominal pain Vomiting Qualifiers: Vomiting type: unspecified Vomiting Intractability: non-intractable Nausea presence: with nausea Qualified Code(s): R11.2 - Nausea with vomiting, unspecified Condition: Good Disposition: HOME, SELF-CARE Additional Instructions: Your work did not show any concerning findings. I suspect your pain and your vomiting is probably related to metformin. Please stop taking this. Please fol low-up with your doctor this week for reevaluation and to discuss alternative treatments of your diabetes. Your pain should stop occurring within the next 24 hours. If you continue to have pain after 24 hours and you should return to the ER for reevaluation. Please return to ER immediately if you have intractable pain, fevers, intractable vomiting, or feel that you are worsening in any way. We will send you home with a bottle of [place]. This is a stronger pain medicine you can take. Take 1 tablet every 4 hours as needed for pain. Please be aware that [place] does have Tylenol (acetaminophen) in it. Please make sure you do not take more than 4000 mg of acetaminophen a day. Do not drive or care for children after you have taken this medication they will make you sleepy and sometimes impair judgment. The Zofran is a nausea medicine. You can take 1 tablet every 4 hours as needed for nausea. Referrals: [facility] [Primary [facility]] - Follow up tomorrow
[2018-10-01 03:57] LABS: ABSOLUTE BASOPHILS # (AUTO) 0.1 10^3/uL (0.0-0.2); ABSOLUTE EOSINOPHILS # (AUTO) 0.4 10^3/uL (0.0-0.6); ABSOLUTE LYMPHOCYTES (AUTO) 1.8 10^3/uL (0.5-4.7); ABSOLUTE MONOCYTES (AUTO) 0.7 10^3/uL (0.1-1.4); ABSOLUTE NEUT (AUTO) 6.1 10^3/uL (1.7-8.2); BASOPHILS % (AUTO) 0.8 % (0-2); EOSINOPHILS % (AUTO) 3.9 % (0-6); HEMATOCRIT 42.6 % (37.9-51.0); HEMOGLOBIN 15.3 g/dL (13.5-17.0); LYMPHOCYTES % (AUTO) 19.8 % (13-45); MEAN CORPUSCULAR HEMOGLOBIN 31.4 pg (27.0-33.4); MEAN CORPUSCULAR HGB CONC 35.9 g/dL (32.0-36.0); MEAN CORPUSCULAR VOLUME 88 fl (80-97); MONOCYTES % (AUTO) 7.7 % (3-13); PLATELET COUNT 264 10^3/uL (150-450); RED BLOOD COUNT 4.86 10^6/uL (4.35-5.55); RED CELL DISTRIBUTION WIDTH 12.7 % (11.5-14.0); SEGMENTED NEUTROPHILS % (AUTO) 67.8 % (42-78); TOTAL CELLS COUNTED % (AUTO) 100 %; WHITE BLOOD COUNT 8.9 10^3/uL (4.0-10.5)
[2018-10-01 04:06] LABS: ALANINE AMINOTRANSFERASE 56 U/L (21-72); ALBUMIN 4.5 g/dL (3.5-5.0); ALKALINE PHOSPHATASE 99 U/L (38-126); ANION GAP 12 (5-19); ASPARTATE AMINO TRANSFERASE 28 U/L (17-59); BILIRUBIN,DIRECT 0.2 mg/dL (0.0-0.4); BILIRUBIN,TOTAL 0.6 mg/dL (0.2-1.3); BLOOD UREA NITROGEN 8 mg/dL (7-20); CALCIUM 9.6 mg/dL (8.4-10.2); CARBON DIOXIDE 27 mmol/L (22-30); CHLORIDE 100 mmol/L (98-107); GLUCOSE 147 mg/dL (75-110); LIPASE 93.8 U/L (23-300); POTASSIUM 4.2 mmol/L (3.6-5.0); SODIUM 138.6 mmol/L (137-145); TOTAL PROTEIN 7.4 g/dL (6.3-8.2)
[2018-10-01 05:00] LABS: APPEARANCE,URINE SLIGHTLY-CLOUDY; BILIRUBIN,URINE NEGATIVE (NEGATIVE); COLOR,URINE AMBER; GLUCOSE, URINE NEGATIVE (NEGATIVE); KETONES,URINE TRACE mg/dL (NEGATIVE); LEUKOCYTE ESTERASE,URINE TRACE (NEGATIVE); NITRITE,URINE NEGATIVE (NEGATIVE); PROTEIN,URINE 100 mg/dL (NEGATIVE); URINE SPECIFIC GRAVITY 1.031
[2018-10-01] MEDS ORDERED: HYDROCODONE/ACETAMINOPHEN 5-325 MG (6 TAB/ER DISP) PO PRN (05:14)
[2018-10-01] MEDS ORDERED: ONDANSETRON ODT 4 MG TAB (6 TAB/ER DISP) PO PRN (05:14)
[2018-10-01 05:40] VITALS: BP 138/82
== END 2018-10-01 05:40 | disposition home or self-care (01) ==
LOC: ER 03:02
DX: R10.84 Generalized abdominal pain (principal); R11.2 Nausea with vomiting, unspecified; M54.9 Dorsalgia, unspecified; I10 Essential (primary) hypertension; E11.9 Type 2 diabetes mellitus without complications; R10.817 Generalized abdominal tenderness
CPT/HCPCS: 99283; 96361; 96374; 96375; 36415; 83690; 85025; 80053; 81001; J1170; J2405; J7030

== ENCOUNTER 2019-01-21 14:02 | Emergency (ER) | payer OTHER ==
[2019-01-21] MEDS ORDERED: ACETAMINOPHEN 325 MG TABLET PO ONE (14:30)
[2019-01-21] MEDS ORDERED: NORMAL SALINE 1000 ML 1,000 ML IV ONE ×3 (14:31→16:53)
--- NOTE | 2019-01-21 14:42 | ER Document Report ---
ED Medical Screen (RME) - General Chief Complaint: Fever Stated Complaint: FEVER, WEAKNESS Time Seen by Provider: 01/21/19 14:30 Primary Care Provider: FUNMILAYO RODRIGUEZ [Primary Care Provider] - Follow up as needed Mode of Arrival: Ambulatory Information source: Patient Notes: 38-year-old male presented to ED for complaint of cough and fever that started last night. He states that he was coughing so much that he was gagging. He states his lungs are very tight. He does have a history of high blood pressure and reflux. He states he smokes about 5 cigarettes a day and drinks once a month. He is febrile with elevated pulse elevated blood pressure today. I have done a septic work-up on him. He is alert and oriented respirations regular and unlabored. I have greeted and performed a rapid initial assessment of this patient. A comprehensive ED assessment and evaluation of the patient, analysis of test results and completion of medical decision making process will be conducted by an additional ED providers. TRAVEL OUTSIDE OF THE [place] IN LAST 30 DAYS: No - Related Data Allergies/Adverse Reactions: azithromycin [From Zithromax Z-Star] Adverse Reaction (Verified 01/21/19 14:30) Past Medical History - Past Medical History Cardiac Medical History: Reports: Hx Hypertension Pulmonary Medical History: Denies: Hx Tuberculosis Neurological Medical History: Reports: Hx Seizures Endocrine Medical History: Reports: Hx Diabetes Mellitus Type 2 Renal/ Medical History: Denies: Hx Peritoneal Dialysis GI Medical History: Reports: Hx Gastroesophageal Reflux Disease Psychiatric Medical History: Reports: Hx Post Traumatic Stress Disorder Traumatic Medical History: Reports: Hx Traumatic Brain Injury Past Surgical History: Reports: Hx Oral Surgery - Immunizations Hx Diphtheria, Pertussis, Tetanus Vaccination: - 2007 Physical Exam - Vital signs Vitals: Temp Pulse Resp BP Pulse Ox 102.3 F H 132 H 22 H 131/87 H 132 H 01/21/19 14:15 01/21/19 14:15 01/21/19 14:15 01/21/19 14:15 01/21/19 14:15 Course - Vital Signs Vital signs: Temp Pulse Resp BP Pulse Ox 102.3 F H 132 H 22 H 131/87 H 132 H 01/21/19 14:15 01/21/19 14:15 01/21/19 14:15 01/21/19 14:15 01/21/19 14:15 Doctor's Discharge - Discharge [facility]: [facility] [[facility] - Follow up as needed
[2019-01-21] MEDS ORDERED: PIPERACILLIN/TAZOBACTAM 3.375 GM VIAL IV ONE (15:10)
[2019-01-21] MEDS ORDERED: DOXYCYCLINE HYCLATE INJ 100 MG VIAL IV ONE (15:10)
[2019-01-21 15:19] LABS: APPEARANCE,URINE SLIGHTLY-CLOUDY; BILIRUBIN,URINE SMALL (NEGATIVE); GLUCOSE, URINE NEGATIVE (NEGATIVE); KETONES,URINE TRACE mg/dL (NEGATIVE); LEUKOCYTE ESTERASE,URINE NEGATIVE (NEGATIVE); NITRITE,URINE NEGATIVE (NEGATIVE); PROTEIN,URINE >=500 mg/dL (NEGATIVE); URINE SPECIFIC GRAVITY 1.028
[2019-01-21 15:21] LABS: COLOR,URINE YELLOW
--- NOTE | 2019-01-21 15:26 | RADIOLOGY REPORT (SQ) ---
EXAM DESCRIPTION: CHEST 2 VIEWS COMPLETED DATE/TIME: 01/21/2019 3:15 pm REASON FOR STUDY: fever cough COMPARISON: None. EXAM PARAMETERS: NUMBER OF VIEWS: two views TECHNIQUE: Digital Frontal and Lateral radiographic views of the chest acquired. RADIATION DOSE: NA LIMITATIONS: none FINDINGS: LUNGS AND PLEURA: No opacities, masses or pneumothorax. No pleural effusion. MEDIASTINUM AND HILAR STRUCTURES: No masses or contour abnormalities. HEART AND VASCULAR STRUCTURES: Heart normal size. No evidence for failure. BONES: No acute findings. HARDWARE: None in the chest. OTHER: No other significant finding. IMPRESSION: NO ACUTE RADIOGRAPHIC FINDING IN THE CHEST. TECHNICAL DOCUMENTATION: JOB ID: [id number] [employer] All Rights Reserved Reading location - IP/workstation name: [email or web address]
[2019-01-21 16:08] LABS: ABSOLUTE BASOPHILS # (AUTO) 0.1 10^3/uL (0.0-0.2); ABSOLUTE EOSINOPHILS # (AUTO) 0.1 10^3/uL (0.0-0.6); ABSOLUTE LYMPHOCYTES (AUTO) 0.7 10^3/uL (0.5-4.7); ABSOLUTE MONOCYTES (AUTO) 0.5 10^3/uL (0.1-1.4); ABSOLUTE NEUT (AUTO) 7.9 10^3/uL (1.7-8.2); BASOPHILS % (AUTO) 0.7 % (0-2); EOSINOPHILS % (AUTO) 1.3 % (0-6); HEMATOCRIT 41.7 % (37.9-51.0); HEMOGLOBIN 14.8 g/dL (13.5-17.0); LYMPHOCYTES % (AUTO) 7.7 % (13-45); MEAN CORPUSCULAR HEMOGLOBIN 31.2 pg (27.0-33.4); MEAN CORPUSCULAR HGB CONC 35.5 g/dL (32.0-36.0); MEAN CORPUSCULAR VOLUME 88 fl (80-97); MONOCYTES % (AUTO) 5.3 % (3-13); PLATELET COUNT 169 10^3/uL (150-450); RED BLOOD COUNT 4.75 10^6/uL (4.35-5.55); RED CELL DISTRIBUTION WIDTH 12.6 % (11.5-14.0); TOTAL CELLS COUNTED % (AUTO) 100 %; WHITE BLOOD COUNT 9.3 10^3/uL (4.0-10.5)
[2019-01-21 16:12] LABS: INTERNATIONAL RATION (INR) 1.07; PROTHROMBIN TIME 13.9 SEC (11.4-15.4)
[2019-01-21 16:23] LABS: ALBUMIN 4.6 g/dL (3.5-5.0); ALKALINE PHOSPHATASE 66 U/L (38-126); ANION GAP 13 (5-19); ASPARTATE AMINO TRANSFERASE 24 U/L (17-59); BILIRUBIN,DIRECT 0.2 mg/dL (0.0-0.4); BLOOD UREA NITROGEN 12 mg/dL (7-20); CALCIUM 9.8 mg/dL (8.4-10.2); CARBON DIOXIDE 24 mmol/L (22-30); CHLORIDE 97 mmol/L (98-107); GLUCOSE 133 mg/dL (75-110); POTASSIUM 4.4 mmol/L (3.6-5.0); TOTAL PROTEIN 7.7 g/dL (6.3-8.2)
[2019-01-21 16:34] LABS: A TYPE INFLUENZA AG NEGATIVE (NEGATIVE); B INFLUENZA AG NEGATIVE (NEGATIVE)
--- NOTE | 2019-01-21 16:49 | ER Document Report ---
ED Fever - General Chief Complaint: Fever Stated Complaint: FEVER, WEAKNESS Time Seen by Provider: 01/21/19 14:30 Primary Care Provider: JENNIFER,FUNMILAYO [Primary Care Provider] - Follow up as needed Mode of Arrival: Ambulatory TRAVEL OUTSIDE OF THE [place] IN LAST 30 DAYS: No - HPI Notes: Patient presents with history of fever. He states he was up to 105 at home. He states that last week he was diagnosed with a left ear cellulitis and started on Bactrim. He states that he is still taking his medications. Today he noticed that he had a rash on his upper chest and neck as well as arms. He also had bilateral neck pain just under his jaw bilaterally. He denies any vomiting or diarrhea. He has had some dry cough. He has had no dysuria urgency or freq uency. Is also had generalized body aches. The pain in his neck is worse if touched and better if left alone. It is not exacerbated by movement of the neck. It is moderate. It has been constant. It is a aching sensation. He denies any known tick bites. - Related Data Allergies/Adverse Reactions: azithromycin [From Zithromax Z-Star] Adverse Reaction (Verified 01/21/19 14:30) Past Medical History - General Information source: Patient - Social History Smoking Status: Current Every Day Smoker Frequency of alcohol use: None Drug Abuse: None Family History: Reviewed & Not Pertinent Patient has suicidal ideation: No Patient has homicidal ideation: No - Past Medical History Cardiac Medical History: Reports: Hx Hypertension Pulmonary Medical History: Denies: Hx Tuberculosis Neurological Medical History: Reports: Hx Seizures Endocrine Medical History: Reports: Hx Diabetes Mellitus Type 2 Renal/ Medical History: Denies: Hx Peritoneal Dialysis GI Medical History: Reports: Hx Gastroesophageal Reflux Disease Psychiatric Medical History: Reports: Hx Post Traumatic Stress Disorder Traumatic Medical History: Reports: Hx Traumatic Brain Injury Past Surgical History: Reports: Hx Oral Surgery - Immunizations Hx Diphtheria, Pertussis, Tetanus Vaccination: - 2007 Hx Pneumococcal Vaccination: 04/22/01 Review of Systems - Review of Systems Constitutional: Chills, Fever, Malaise, Weakness Cardiovascular: denies: Chest pain, Palpitations Respiratory: Cough, Sputum. denies: Short of breath Gastrointestinal: denies: Diarrhea, Vomiting -: Yes All other systems reviewed and negative Physical Exam - Vital signs Vitals: Temp Pulse Resp BP Pulse Ox 102.3 F H 132 H 22 H 131/87 H 132 H 01/21/19 14:15 01/21/19 14:15 01/21/19 14:15 01/21/19 14:15 01/21/19 14:15 Interpretation: Tachycardic, Febrile - General General appearance: Alert In distress: None - HEENT Head: Normocephalic, Atraumatic Eyes: Normal Pupils: PERRL - Respiratory Respiratory status: No respiratory distress Chest status: Nontender Breath sounds: Normal Chest palpation: Normal - Cardiovascular Rhythm: Tachycardia Heart sounds: Normal auscultation Murmur: No - Abdominal Inspection: Normal Distension: No distension Bowel sounds: Normal Tenderness: Tender - Mild tenderness bilaterally lower quadrants. No surgical abdominal signs. Organomegaly: No organomegaly - Back Back: Normal, Nontender - Extremities General upper extremity: Normal inspection, Nontender, Normal color, Normal ROM, Normal temperature General lower extremity: Normal inspection, Nontender, Normal color, Normal ROM, Normal temperature, Normal weight bearing. No: Roxanne's sign - Neurological Neuro grossly intact: Yes Cognition: Normal Orientation: AAOx4 [place] Coma Scale Eye Opening: Spontaneous Zohra Coma Scale Verbal: Oriented [place] Coma Scale Motor: Obeys Commands [place] Coma Scale Total: 15 Speech: Normal Motor strength normal: LUE, RUE, LLE, RLE Sensory: Normal - Psychological Associated symptoms: Normal affect, Normal mood - Skin Skin Temperature: Warm Skin Moisture: Dry Skin Color: Other - Patient has a blanching erythematous rash of the upper chest bilateral upper arms and neck. Course - Re-evaluation Re-evalutation: 01/21/19 18:28 Patient presents with fever sore throat and tender lymph nodes. CT of the neck is unremarkable other than the reactive lymphadenopathy. He has no apparent abscess. He does not appear toxic. His lactate is normal. He is slightly tachycardic but this is consistent with being febrile. I think patient is safe for discharge home with antibiotics. - Vital Signs Vital signs: Temp Pulse Resp BP Pulse Ox 99.3 F 132 H 19 131/87 H 95 01/21/19 17:39 01/21/19 14:15 01/21/19 17:00 01/21/19 14:15 01/21/19 17:00 - Laboratory Result Diagrams: 01/21/19 15:38 01/21/19 15:38 Laboratory results interpreted by me: 01/21/19 01/21/19 01/21/19 15:07 15:38 15:38 Lymph % (Auto) 7.7 L Seg Neutrophils % 85.0 H VBG pH VBG pCO2 Sodium 133.5 L Chloride 97 L Creatinine 1.51 H Est GFR (MDRD) Non-Af 53 L Glucose 133 H Urine Protein >=500 H Urine Ketones TRACE H Urine Bilirubin SMALL H Urine Urobilinogen 4.0 H 01/21/19 16:21 Lymph % (Auto) Seg Neutrophils % VBG pH 7.47 H VBG pCO2 30.7 L Sodium Chloride Creatinine Est GFR (MDRD) Non-Af Glucose Urine Protein Urine Ketones Urine Bilirubin Urine Urobilinogen - Diagnostic Test Radiology reviewed: Image reviewed, Reports reviewed - EKG Interpretation by Me EKG shows normal: Sinus rhythm Rate: Tachycardia - 110 Rhythm: NSR [place]/QRS: No: Right axis deviation, Left axis deviation Discharge - Discharge Clinical Impression: Tonsillitis, Lymphadenopathy of head and neck Condition: Stable Disposition: HOME, SELF-CARE Instructions: Acetaminophen, Fever ([facility]), Use of Pnzh-[id number]-[id number] Ibuprofen ([facility]), Tonsillitis ([facility]), Oral Narcotic Medication ([facility]) Additional Instructions: Please call your doctor first thing in the morning to arrange follow-up Prescriptions: Cefdinir 300 mg PO BID 7 Days #14 capsule Hydrocodone/Acetaminophen [[place] 5-325 mg Tablet] 1 tab PO Q6 PRN 3 Days #12 tablet PRN Reason: Forms: Return to Work [facility]errals: [facility] [[facility]] - Follow up tomorrow
[2019-01-21 16:56] LABS: VENOUS BLOOD BASE EXCESS -0.5 mmol/L; VENOUS BLOOD PCO2 30.7 mmHg (35-63); VENOUS BLOOD PH 7.47 (7.30-7.42)
--- NOTE | 2019-01-21 17:35 | RADIOLOGY REPORT (SQ) ---
EXAM DESCRIPTION: CT SOFT TISSUE NECK WITH COMPLETED DATE/TIME: 01/21/2019 5:00 pm REASON FOR STUDY: pain/swelling/fever COMPARISON: None. TECHNIQUE: Post IV contrasted scanning from skull base through lung apices with review of bone, soft tissue and lung windows. Reconstructed coronal and sagittal MPR images reviewed. All images stored on PACS. All CT scanners at this facility use dose modulation, iterative reconstruction, and/or weight based d osing when appropriate to reduce radiation dose to as low as reasonably achievable (ALARA). [facility]: Dose Right [facility]: CareDose [facility]: Dose Right [facility]: Teradose 4D [facility]: [employer] CONTRAST TYPE AND DOSE: Contrast/concentration: Isovue 350.00 mg/ml; Total Contrast Delivered: 75.0 ml; Total Saline Delivered: 55.0 ml RENAL FUNCTION: GFR > 60. RADIATION DOSE: CT Rad equipment meets quality standard of care and radiation dose reduction techniq ues were employed. CTDIvol: 16.0 mGy. DLP: 536 mGy-cm. . LIMITATIONS: None. FINDINGS: SKULL BASE: Intact. There is no craniocervical atlantoaxial dissociation. MAJOR SALIVARY GLANDS: No abnormality of the parotid and submandibular glands. LYMPHADENOPATHY: Enlarged bilateral level IIA, IIB, III, IV, supraclavicular and upper mediastinal ly mph nodes; for reference the level II a lymph nodes measure up to 14 mm in short axis diameter and th e level III, level III and the mediastinal lymph nodes measure up to 12 mm in short axis diameter. MUCOSAL MASSES OR ASYMMETRY: The palatine tonsils are enlarged ; there is no rim-enhancing collection in the tonsils. LARYNX/CORDS: No abnormality. VASCULAR STRUCTURES: Patent. LUNG APICES: Clear. BONES: Intact. THYROID: The thyroid gland is normal in size; there is no discrete nodule. PARANASAL SINUSES: There are mucous retention cysts within the maxillary sinuses. OTHER: There is no periapical or periodontal abscess. IMPRESSION: 1. The palatini tonsils are enlarged but the attenuation of the tonsils is normal and t here is no abnormal enhancement or discrete fluid collection - correlate with clinical findings to ex clude a tonsillitis. 2. Enlarged bilateral level IIA, IIB, III, IV, supraclavicular and upper mediastinal lymph nodes rosa t could be reactive in etiology. TECHNICAL DOCUMENTATION: JOB ID: [id number] Quality ID # [id number]: Final reports with documentation of one or more dose reduction techniques (e.g., Au tomated exposure control, adjustment of the mA and/or kV according to patient size, use of iterative reconstruction technique) 2010 [employer]- All Rights Reserved Reading location - IP/workstation name: [email or web address]
[2019-01-21 18:39] VITALS: BP 134/87
--- NOTE | 2019-01-21 19:53 | EKG REPORT ---
SEVERITY:- OTHERWISE NORMAL ECG - SINUS TACHYCARDIA : Confirmed by: Casie Masters MD 21-Jan-2019 19:51:53
[2019-01-27 07:17] LABS: ROCKY MTN SPOTTED FEV IGG EIA Positive (Negative); ROCKY MTN SPOTTED FEV IGG IFA <1:64 (Neg <1:64)
== END 2019-01-21 18:45 | disposition home or self-care (01) ==
LOC: ER 14:02
DX: J03.90 Acute tonsillitis, unspecified (principal); R59.0 Localized enlarged lymph nodes; R50.9 Fever, unspecified; H60.12 Cellulitis of left external ear; R21 Rash and other nonspecific skin eruption; M54.2 Cervicalgia; R05 Cough; R53.81 Other malaise; R53.1 Weakness; R00.0 Tachycardia, unspecified; R10.813 Right lower quadrant abdominal tenderness; R10.814 Left lower quadrant abdominal tenderness; F17.200 Nicotine dependence, unspecified, uncomplicated; E11.9 Type 2 diabetes mellitus without complications; I10 Essential (primary) hypertension
CPT/HCPCS: 93005; 99284; 96361; 96365; 96367; 36415; 87040; 87070; 87086; 87880; 85025; 85610; 80053; 81001; 86757 ×2; 82803; 83605; 87804; 71046; 70491; 93010; J3490; J7030; J2543

== ENCOUNTER 2019-02-25 00:44 | Emergency (ER) | payer OTHER ==
[2019-02-25] MEDS ORDERED: AMIODARONE HCL INJ 150 MG/3 ML VIAL IV ONE (01:00)
[2019-02-25] MEDS ORDERED: PROPOFOL 1,000 MG/100 ML INFUS..BTL IV ONE (01:09)
[2019-02-25] MEDS ORDERED: NITROGLYCERIN/D5W 50 MG/250 ML RTUINJ IV ONE (01:09)
[2019-02-25 01:12] LABS: INTERNATIONAL RATION (INR) 1.04; PROTHROMBIN TIME 13.7 SEC (11.4-15.4)
[2019-02-25 01:25] LABS: ALBUMIN 4.3 g/dL (3.5-5.0); ALKALINE PHOSPHATASE 83 U/L (38-126); ASPARTATE AMINO TRANSFERASE 355 U/L (17-59); BILIRUBIN,DIRECT 0.2 mg/dL (0.0-0.4); BILIRUBIN,TOTAL 0.4 mg/dL (0.2-1.3); BLOOD UREA NITROGEN 14 mg/dL (7-20); CALCIUM 9.4 mg/dL (8.4-10.2); CREATINE KINASE 102 U/L (55-170); GLUCOSE 300 mg/dL (75-110); TOTAL PROTEIN 6.9 g/dL (6.3-8.2)
--- NOTE | 2019-02-25 01:27 | ER Document Report ---
HPI - HPI Time Seen by Provider: 02/25/19 00:49 Past Medical History - Social History Family History: Reviewed & Not Pertinent - Past Medical History Cardiac Medical History: Reports: Hx Hypertension Pulmonary Medical History: Denies: Hx Tuberculosis Neurological Medical History: Reports: Hx Seizures Endocrine Medical History: Reports: Hx Diabetes Mellitus Type 2 Renal/ Medical History: Denies: Hx Peritoneal Dialysis GI Medical History: Reports: Hx Gastroesophageal Reflux Disease Psychiatric Medical History: Reports: Hx Post Traumatic Stress Disorder Traumatic Medical History: Reports: Hx Traumatic Brain Injury Past Surgical History: Reports: Hx Oral Surgery - Immunizations Hx Diphtheria, Pertussis, Tetanus Vaccination: - 2007 Hx Pneumococcal Vaccination: 04/22/01 Vertical Provider Document - INFECTION CONTROL TRAVEL OUTSIDE OF THE [place] IN LAST 30 DAYS: No Course - Laboratory Result Diagrams: 02/25/19 00:47 02/25/19 00:47 Discharge - Discharge [facility]errals: [facility] [[facility]] - Follow up as needed
[2019-02-25] MEDS ORDERED: FENTANYL CITRATE INJ/PF 100 MCG/2 ML AMPUL ONE (01:28)
[2019-02-25 01:30] LABS: CARBON DIOXIDE 12 mmol/L (22-30); CHLORIDE 100 mmol/L (98-107)
[2019-02-25 01:37] LABS: ANION GAP 30 (5-19)
[2019-02-25 01:38] LABS: POTASSIUM 2.8 mmol/L (3.6-5.0)
[2019-02-25 01:41] LABS: HEMATOCRIT 45.4 % (37.9-51.0); MEAN CORPUSCULAR HEMOGLOBIN 31.5 pg (27.0-33.4); MEAN CORPUSCULAR VOLUME 96 fl (80-97); PLATELET COUNT 287 10^3/uL (150-450); RED BLOOD COUNT 4.75 10^6/uL (4.35-5.55); RED CELL DISTRIBUTION WIDTH 13.9 % (11.5-14.0); WHITE BLOOD COUNT 14.4 10^3/uL (4.0-10.5)
[2019-02-25] MEDS ORDERED: POTASSIUM CHLORIDE 20 MEQ PACKET PO ONE (01:41)
[2019-02-25] MEDS ORDERED: ASPIRIN 300 MG SUPP, RECTAL PR ONE (01:42)
[2019-02-25] MEDS ORDERED: POTASSI CL 20 MEQ/50 ML RIDER 20 MEQ/50 ML RTUPB IV ONE (01:42)
[2019-02-25] MEDS ORDERED: NITROGLYCERIN/D5W 50 MG/250 ML RTUINJ IV PRN ×2 (01:43→05:07)
[2019-02-25] MEDS ORDERED: PROPOFOL 1,000 MG/100 ML INFUS..BTL IV PRN ×2 (01:43→03:21)
[2019-02-25] MEDS ORDERED: DEXTROSE 5%-WATER 500 ML with AMIODARONE HCL 900 MG IV PRN ×2 (01:43)
[2019-02-25] MEDS ORDERED: SUCCINYLCHOLINE CHLORIDE INJ 200 MG/10 ML VIAL IV ONE (01:44)
[2019-02-25 01:50] LABS: CREATINE KINASE MB 0.45 ng/mL (<4.55); TROPONIN I 0.013 ng/mL
[2019-02-25 01:52] LABS: ABSOLUTE LYMPHOCYTES# (MANUAL) 9.6 10^3/uL (0.5-4.7); ABSOLUTE MONOCYTES # (MANUAL) 0.7 10^3/uL (0.1-1.4); BASOPHILS % (MANUAL) 0 % (0-2); EOSINOPHILS % (MANUAL) 4 % (0-6); METAMYELOCYTES % (MANUAL) 1 % (0-1); MONOCYTES % (MANUAL) 5 % (3-13); RBC MORPHOLOGY COMMENT NORMO-CYTIC/CHROMIC; SEGMENTED NEUTROPHILS % (MAN) 23 % (42-78); TOTAL CELLS COUNTED 100
[2019-02-25 01:53] LABS: LYMPHOCYTES % (MANUAL) 67 % (13-45); PLATELET COMMENT ADEQUATE
[2019-02-25] MEDS ORDERED: ENOXAPARIN SODIUM INJ 100 MG/1 ML DISP.SYRIN SUBCUT ONE ×2 (01:53→02:15)
[2019-02-25 01:55] LABS: APPEARANCE,URINE CLEAR; BILIRUBIN,URINE NEGATIVE (NEGATIVE); COLOR,URINE YELLOW; GLUCOSE, URINE 50 mg/dL (NEGATIVE); KETONES,URINE TRACE mg/dL (NEGATIVE); LEUKOCYTE ESTERASE,URINE NEGATIVE (NEGATIVE); NITRITE,URINE NEGATIVE (NEGATIVE); PROTEIN,URINE >=500 mg/dL (NEGATIVE); URINE SPECIFIC GRAVITY 1.022; UROBILINOGEN,URINE NEGATIVE mg/dL (<2.0)
[2019-02-25] MEDS ORDERED: FENTANYL CITRATE INJ/PF 100 MCG/2 ML AMPUL IV ONE (02:09)
[2019-02-25] MEDS ORDERED: CLOPIDOGREL BISULFATE 300 MG TABLET NG ONE (02:15)
[2019-02-25] MEDS ORDERED: ASPIRIN 81 MG TABLET, CHEWABLE PO ONE (02:15)
[2019-02-25] MEDS ORDERED: TENECTEPLASE INJ 50 MG KIT IV ONE (02:15)
[2019-02-25 02:23] VITALS: BP 106/71
[2019-02-25 02:40] LABS: ARTERIAL BLOOD BASE EXCESS -11.4 mmol/L; ARTERIAL BLOOD FIO2 100%; ARTERIAL BLOOD H2CO3 1.23 mmol/L (1.05-1.35); ARTERIAL BLOOD HCO3 15.9 mmol/L (20-24); ARTERIAL BLOOD PCO2 40.8 mmHg (35-45); ARTERIAL BLOOD PH 7.21 (7.35-7.45); ARTERIAL BLOOD PO2 187.5 mmHg (80-100); ARTERIAL BLOOD TOTAL CO2 17.2 mmol/L (23-27)
[2019-02-25 02:48] LABS: URINE AMPHETAMINES SCREEN NEGATIVE; URINE BARBITURATES SCREEN NEGATIVE; URINE BENZODIAZEPINES SCREEN NEGATIVE; URINE COCAINE SCREEN NEGATIVE; URINE MARIJUANA (THC) SCREEN NEGATIVE; URINE METHADONE SCREEN NEGATIVE; URINE PHENCYCLIDINE SCREEN NEGATIVE
--- NOTE | 2019-02-25 03:59 | ER Document Report ---
ED Cardiac - General Chief Complaint: Chest Pain Stated Complaint: CHEST PAIN Time Seen by Provider: 02/25/19 00:49 Primary Care Provider: [facility] [[facility]] - Follow up as needed TRAVEL OUTSIDE OF THE [place] IN LAST 30 DAYS: No - Related Data Allergies/Adverse Reactions: azithromycin [From Zithromax Z-Star] Adverse Reaction (Verified 01/21/19 14:30) Past Medical History - Social History Smoking Status: Unknown if Ever Smoked Family History: Reviewed & Not Pertinent Patient has suicidal ideation: No Patient has homicidal ideation: No - Past Medical History Cardiac Medical History: Reports: Hx Hypertension Pulmonary Medical History: Denies: Hx Tuberculosis Neurological Medical History: Reports: Hx Seizures Endocrine Medical History: Reports: Hx Diabetes Mellitus Type 2 Renal/ Medical History: Denies: Hx Peritoneal Dialysis GI Medical History: Reports: Hx Gastroesophageal Reflux Disease Psychiatric Medical History: Reports: Hx Post Traumatic Stress Disorder Traumatic Medical History: Reports: Hx Traumatic Brain Injury Past Surgical History: Reports: Hx Oral Surgery - Immunizations Hx Diphtheria, Pertussis, Tetanus Vaccination: - 2007 Hx Pneumococcal Vaccination: 04/22/01 Physical Exam - Vital signs Vitals: Resp Pulse Ox 29 H 100 02/25/19 00:45 02/25/19 00:45 - Notes Notes: Patient was brought in by paramedics this post cardiac arrest. History was obtained from family and paramedics. indicates that they had intercourse. He did not take Viagra or Cialis. She relates that his developed substernal chest pain that he says was like a tightness. They contacted 911 and advised patient to get into a comfortable position so he was laying on the ground. Paramedics arrived the EKG which showed a large anterior lateral VA. Placed in the unit and shortly if that has had a seizure he was treated with Versed and then went into V. tach. He was defibrillated x3 given 3 rounds of epi and a short course of CPR. Intraosseous line was inserted a LMA inserted. She had a return of spontaneous circulation with a good pulse and blood pressure he arrived in the emergency department unresponsive there is minimal response to painful stimuli he has an LMA in place. He has good breath sounds bilaterally Past medical history includes diabetes hypertension and seizures. However has not had a seizure in many years Social history is unobtainable at this time no family history of early heart disease denies any history of trauma today or falls Exam PHYSICAL EXAMINATION: Signs are noted GENERAL: Well-appearing, well-nourished and in no acute distress. HEAD: Atraumatic, normocephalic. EYES: Pupils midrange round and sluggish to react,. ENT: nares patent, oropharynx LMA in place moist mucous membranes. NECK: , supple without lymphadenopathy no step-off LUNGS: Breath sounds equal bilaterally [id number] with some upper airway rhonchi HEART: Rapid and regular ABDOMEN: Soft, nondistended and no masses EXTREMITIES: Intraosseous line in the lower extremity no deformities noted. NEUROLOGICAL: Unresponsive but minimal response to painful stimuli SKIN: Warm, Dry, normal turgor, no rashes or lesions noted. Course - Re-evaluation Re-evalutation: 02/25/19 03:59 ED placed on a classroom monitor 3 IVs were started. Started on nitroglycerin drip and given aspirin rectally. Also given a 5 and cc bolus of normal saline and NG tube inserted he had an additional run of V. tach and was cardioverted at 200 mg. In addition 150 mg amiodarone and started on the drip. It was felt the patient needed definitive airway so the lma was removed he was initially did to intubate, however the patient started having gagging. Following this he was given 160 mg of succinylcholine and intubated using a glide scope and a bougie there was trouble passing the tube however with the bougie was passed with success. Cords were visualized on this procedure. Patient had good col orimetric change on [id number] is good breath sounds bilaterally and his O2 sats was stable case was discussed with cardiology when he felt the patient had seizure and CPR he felt neither 1 of these were contraindications to TPA and so patient was given thrombolytics as well as Lovenox IV and subcu she started awake up and required patient with propofol and fentanyl patient's blood pressure was high. He had a transient drop in blood pressure we stopped the nitroglycerin decreased propofol with improvement of his blood pressure was also given a second 500 cc of saline G-tube in all were inserted his labs were reviewed he was given potassium via the NG tube and IV potassium also. Medical decision making patient presents with a witnessed arrest with a large anterior VA. He will be transferred to [facility] for further care will probably need an emergent cath Critical care time was 75 minutes excluding time spent on billable procedures Procedure she was intubated using a glide scope and 7.5 endotracheal tube - Vital Signs Vital signs: Temp Pulse Resp BP Pulse Ox 16 106/71 98 02/25/19 01:51 02/25/19 01:56 02/25/19 01:56 - Laboratory Result Diagrams: 02/25/19 00:47 02/25/19 00:47 Laboratory results interpreted by me: 02/25/19 02/25/19 02/25/19 00:47 00:47 01:16 WBC 14.4 H Seg Neuts % (Manual) 23 L Lymphocytes % (Manual) 67 H Abs Lymphs (Manual) 9.6 H ABG pH ABG pO2 ABG HCO3 ABG Total CO2 ABG O2 Saturation Potassium 2.8 L* Carbon Dioxide 12 L Anion Gap 30 H Creatinine 1.58 H Est GFR (MDRD) Non-Af 50 L Glucose 300 H AST 355 H Urine Protein >=500 H Urine Glucose (UA) 50 H Urine Ketones TRACE H 02/25/19 01:43 WBC Seg Neuts % (Manual) Lymphocytes % (Manual) Abs Lymphs (Manual) ABG pH 7.21 L ABG pO2 187.5 H ABG HCO3 15.9 L ABG Total CO2 17.2 L ABG O2 Saturation 99.0 H Potassium Carbon Dioxide Anion Gap Creatinine Est GFR (MDRD) Non-Af Glucose AST Urine Protein Urine Glucose (UA) Urine Ketones - Diagnostic Test Radiology results interpreted by me: 02/25/19 03:58 Initial chest x-ray read by me shows no acute infiltrate. Repeat chest x-ray read by me shows endotracheal tube and NG tube in place - EKG Interpretation by Me Additional EKG results interpreted by me: 02/25/19 03:59 Initial EKG shows a sinus tachycardia with ST elevation in the anterior lateral leads with cervical changes inferiorly. Was obtained immediately after arrival. These changes are all new from previous. Repeat EKG was done 15 minutes later to ensure this was not just due to epinephrine unchanged from the first. EKG was obtained. Patient had received the lytics slight decrease in the ST elevation Discharge - Discharge Clinical Impression: Cardiac arrest with successful resuscitation, Acute VA, anterolateral wall, initial episode of care, Hypokalemia Clinical Impression: (Ruled Out): Acute VA anterior lateral subsequent episode care Disposition: [facility]errals: [facility] [Primary Care Provider] - Follow up as needed
[2019-02-25 09:20] LABS: PATH REVIEW PATHOLOGIST REVIEWED
--- NOTE | 2019-02-25 11:05 | RADIOLOGY REPORT (SQ) ---
XR CHEST 1 VIEW EXAM DATE: 02/25/2019 12:21 AM MANAGER EDUCATION HISTORY: POST INTUBATION. COMPARISON: 01/21/2019 FINDINGS: The heart size is within normal limits. No consolidation, pleural effusion, or pneumothorax is seen. There is mild atelectasis at the left lung base. No acute bony findings. The endotracheal tube is 4 cm from the lashawn. The enteric tube overlies the stomach and the left upper quadrant. IMPRESSION: Support devices in appropriate position.
--- NOTE | 2019-02-25 14:19 | RADIOLOGY REPORT (SQ) ---
EXAM DESCRIPTION: CHEST SINGLE VIEW COMPLETED DATE/TIME: 02/25/2019 1:57 pm REASON FOR STUDY: POST INTUBATION COMPARISON: 01/21/2019 NUMBER OF VIEWS: One view. TECHNIQUE: Single frontal radiographic image of the chest acquired. LIMITATIONS: None. FINDINGS: LUNGS AND PLEURA: Lung graves are clear. Electronic device overlies the right lower thora x just right of midline. No support lines or tubes are identified. Leads of some type overlies the lower chest and abdomen. MEDIASTINUM AND HILAR STRUCTURES: Normal in appearance. HEART AND VASCULAR STRUCTURES: Heart size is normal. No failure. SUPPORT DEVICES: None identified. BONES: No acute findings. OTHER: No other significant finding. IMPRESSION: No acute findings in the chest. No pneumothorax. TECHNICAL DOCUMENTATION: JOB ID: [id number] [employer]- All Rights Reserved Reading location - IP/workstation name: [email or web address]
--- NOTE | 2019-02-25 23:38 | EKG REPORT ---
SEVERITY:- ABNORMAL ECG - SINUS TACHYCARDIA PROBABLE LEFT ATRIAL ABNORMALITY ANTEROLATERAL INFARCT, ACUTE : Confirmed by: Haylie Davis 25-Feb-2019 23:38:14
--- NOTE | 2019-02-25 23:38 | EKG REPORT ---
SEVERITY:- ABNORMAL ECG - SINUS TACHYCARDIA ANTEROLATERAL INFARCT, ACUTE BORDERLINE PROLONGED QT INTERVAL : Confirmed by: Haylie Davis 25-Feb-2019 23:38:03
--- NOTE | 2019-02-25 23:39 | EKG REPORT ---
SEVERITY:- ABNORMAL ECG - SINUS TACHYCARDIA NONSPECIFIC INTRAVENTRICULAR CONDUCTION DELAY EXTENSIVE ANTERIOR INFARCT, ACUTE : Confirmed by: Haylie Davis 25-Feb-2019 23:38:35
== END 2019-02-25 01:58 | disposition short-term general hospital (02) ==
LOC: ER 00:44
DX: I21.09 ST elevation (STEMI) myocardial infarction involving other coronary artery of anterior wall (principal); I46.9 Cardiac arrest, cause unspecified; R07.9 Chest pain, unspecified; R56.9 Unspecified convulsions; I10 Essential (primary) hypertension; E11.9 Type 2 diabetes mellitus without complications; F43.10 Post-traumatic stress disorder, unspecified
CPT/HCPCS: 31500; 93005; 99291; 99292; 96375; 96365; 36415; 82553; 82962; 82803; 82550; 85025; 85610; 80053; 81001; 84484; 80307; 71045; 94660; 93010; 36600; J3101; J3490 ×4; J3010; J2704; J0330; J3480; J7060; J1650; J0282